=== PATIENT | female | born 1955 | race Caucasian/White ===

== ENCOUNTER 2017-08-14 05:31 | Inpatient (IN) | payer BC ==
[2017-08-13 14:30] VITALS: BMI 23.0
[2017-08-14] VITALS (30 sets, daily range): BP systolic 88–137; BP diastolic 44–72; PULSE 96–112; RESP 14–29; Ht 166.4 cm; Wt 63.0 kg
[~2017-08-14] VITALS: Ht 166.4 cm; Wt 63.0 kg
[2017-08-14] MEDS ORDERED: CEFAZOLIN 2 GM/50 ML (PMX) 50 ML IVPB SCH (06:00)
[2017-08-14] MEDS ORDERED: LACTATED RINGER'S 1,000 ML IV* SCH (06:00)
[2017-08-14] MEDS ORDERED: SURGIFOAM POWDER 1 GM KIT ONE ×2 (06:46→08:33)
[2017-08-14] MEDS ORDERED: GELATIN SIZE 100 SPONGE ONE (06:46)
[2017-08-14] MEDS ORDERED: BUPIVACAINE 0.25%/EPI (SDV) 30 ML INJ ONE (06:46)
[2017-08-14] MEDS ORDERED: SODIUM CL BACTERIOSTATIC 30 ML INJ ONE (06:47)
[2017-08-14] MEDS ORDERED: CEFAZOLIN 1 GM INJ ONE ×2 (06:47→07:15)
[2017-08-14] MEDS ORDERED: THROMBIN 5000 UNIT VIAL ONE ×2 (06:47→08:33)
[2017-08-14] MEDS: D5W-0.45 NACL + KCL 20 MEQ 1,000 ML IV SCH ×2 (06:53→17:45)
--- NOTE | 2017-08-14 06:53 | HPN ---
Date/Time of Note Date/Time of Note DATE: 08/14/17 TIME: 06:52 Interval H&P Admission Note Pt. seen H&P reviewed: No system changes OTTONIEL MARQUEZ MD Aug 14, 2017 06:53
[2017-08-14] MEDS ORDERED: AL HYDROX/MG HYDROX/SIMETH 30 ML CUP PO PRN (07:00)
[2017-08-14] MEDS ORDERED: CEPASTAT LOZENGE MT PRN (07:00)
[2017-08-14] MEDS ORDERED: DIPHENHYDRAMINE 25 MG CAP PO PRN (07:00)
[2017-08-14] MEDS ORDERED: OXYCODONE/ACETAMINOPHEN (10/325) TAB PO PRN (07:00)
[2017-08-14] MEDS ORDERED: HYDROmorphONE 0.5 MG/0.5 ML SYG IV PRN (07:00)
[2017-08-14] MEDS ORDERED: BISACODYL 10 MG SUPP PR PRN (07:00)
[2017-08-14] MEDS ORDERED: ACETAMINOPHEN 325 MG TAB PO PRN (07:00)
[2017-08-14] MEDS ORDERED: ONDANSETRON 4 MG INJ IV PRN ×2 (07:00→08:00)
[2017-08-14] MEDS ORDERED: NALOXONE (0.4 MG/ML) INJ IV PRN (07:00)
[2017-08-14] MEDS: CEFAZOLIN 1 GM/50 ML (PMX) 50 ML IVPB SCH ×3 (07:00→23:45)
[2017-08-14] MEDS ORDERED: HEPARIN 1000 UNITS/ML 10 ML INJ ONE ×2 (07:01→08:11)
[2017-08-14] MEDS ORDERED: GLYCOPYRROLATE 0.4 MG INJ ONE (07:15)
[2017-08-14] MEDS ORDERED: ONDANSETRON 4 MG INJ ONE (07:15)
[2017-08-14] MEDS ORDERED: ROCURONIUM 50 MG INJ ONE ×3 (07:15→10:15)
[2017-08-14] MEDS ORDERED: NEOSTIGMINE 3 MG/3 ML SYRINGE ONE (07:15)
[2017-08-14] MEDS ORDERED: FENTAnyl 50 MCG/ML VIAL ONE (07:15)
[2017-08-14] MEDS ORDERED: PROPOFOL 20 ML ONE (07:15)
[2017-08-14] MEDS ORDERED: MIDAZOLAM 1 MG/ML 2 ML INJ ONE (07:15)
[2017-08-14] MEDS ORDERED: DEXAMETHASONE 4 MG/ML 1 ML INJ ONE (07:16)
[2017-08-14] MEDS ORDERED: PHENYLephrine (100 MCG/ML) 5ML SYG ONE ×3 (07:49→11:32)
[2017-08-14] MEDS ORDERED: LABETALOL HCL 20MG INJ IV PRN (08:00)
[2017-08-14] MEDS ORDERED: hydrALAzine 20 MG INJ IV PRN (08:00)
[2017-08-14] MEDS ORDERED: FENTAnyl 50 MCG/ML VIAL IV PRN (08:00)
[2017-08-14] MEDS ORDERED: TRIMETHOBENZAMIDE 100 MG/ML VIAL IM PRN (08:00)
[2017-08-14] MEDS ORDERED: ALBUTEROL 0.083% (NEB) 2.5 MG/3 ML AMP HHN PRN (08:00)
[2017-08-14] MEDS ORDERED: IPRATROPIUM (NEB) 0.5 MG/2.5 ML AMP HHN PRN (08:00)
[2017-08-14] MEDS ORDERED: DIPHENHYDRAMINE 50 MG INJ IV PRN (08:00)
[2017-08-14] MEDS ORDERED: MEPERIDINE 25 MG INJ IV PRN (08:00)
[2017-08-14] MEDS ORDERED: MIDAZOLAM 1 MG/ML 2 ML INJ IV PRN (08:00)
[2017-08-14] MEDS ORDERED: OXYCODONE/ACETAMINOPHEN (5/325) TAB PO PRN ×2 (08:00)
[2017-08-14] MEDS ORDERED: HYDROmorphONE (0.2 MG/ML) 10ML SYG IV PRN ×2 (08:00)
[2017-08-14] MEDS ORDERED: EPHEDrine SULFATE 50 MG/5 ML SYG IV PRN (08:00)
[2017-08-14] MEDS: DOCUSATE SODIUM 100 MG CAP PO SCH ×2 (09:00→20:10)
[2017-08-14] MEDS ORDERED: THROMBIN(HUM PLAS)/FIBRINOG/CA 5 ML VIAL TOP ONE (09:47)
[2017-08-14] MEDS ORDERED: SUGAMMADEX SODIUM 200 MG/2 ML VIAL IV ONE ×2 (10:15→11:35)
--- NOTE | 2017-08-14 10:17 | SIPON ---
Date/Time of Note Date/Time of Note DATE: 08/14/17 TIME: 10:15 Operative Report Preoperative Diagnosis Lumbar disc disease Postoperative Diagnosis Lumbar disc disease Operation/Procedure Performed Lumbar fusion Surgeon see signature line child welfare assistant Malekmehkaylee Second assist: ROBIN REICH PA-C Anesthesia: general Estimated blood loss: 50 - 100 ml's Transfusion Required none Specimen disk Grafts/Implants cage and screws Complications none OTTONIEL MARQUEZ MD Aug 14, 2017 10:17
[2017-08-14] MEDS ORDERED: METOCLOPRAMIDE 10 MG INJ ONE (11:39)
[2017-08-14] MEDS ORDERED: HYDROmorphONE (0.2 MG/ML) 10ML SYG IV ONE (12:11)
[2017-08-14] MEDS: HYDROmorphONE 0.2 MG/ML PCA IV SCH ×2 (12:17→18:46)
[2017-08-14] MEDS: HYDROmorphONE (0.2 MG/ML) 10ML SYG IV PRN ×3 (12:19→12:23)
--- NOTE | 2017-08-14 12:23 | OPR ---
DATE OF OPERATION: 08/14/2017 PREOPERATIVE DIAGNOSES: L4 to 5, L5 to S1 disk disease with stenosis. POSTOPERATIVE DIAGNOSES: L4 to 5, L5 to S1 disk disease with stenosis. OPERATION PERFORMED: 1. Anterior lumbar interbody fusion at L4 to 5 and L5 to S1. 2. Placement of intervertebral biomechanical device at L4 to L5 and L5 to S1. 3. Anterior hardware at L4 to 5 and L5 to S1. 4. Left iliac crest bone marrow aspiration. 5. Application of NuShield device. 6. Treatment of dural tear. 7. Use of allograft. 8. Use of C-arm fluoroscopy with interpretation without radiologist present. 9. Intraoperative neuromonitoring (2.5 hours). IMPLANTS: Renovis Tsera standalone 13 x 38 x 30 mm at L4 to 5 and L5 to S1 with 7 degrees at L4 to 5 and 12 degrees at L5 to S1, fibergraft. PRIMARY SURGEON: Merlin Solis MD. CO-SURGEON: Jasmine Bryant MD. SECOND BLASTER HELPER: Cathy Lane PA-C. NEED FOR CO-SURGEON: A co-surgeon was required in order to retract the neurovascular elements. FINDINGS: Neuromonitoring at the start of the case revealed left L3 amplitude down 20%, right L3 down 30%, left L4 amplitude down 40%, right L4 down 50%, left L5 down 70%, right L5 down 40%, left S1 down 70%, right S1 down 30%. At the end of the case, nerve signals remained unchanged. The patient had significant disk collapse and stenosis at both levels. A dural tear was encountered at the L4 to 5 level. ESTIMATED BLOOD LOSS: Per Dr. Bryant. DRAINS: None. SPECIMENS: L4 to 5 and L5 to S1 disk. COMPLICATIONS OF PROCEDURES: Dural tear at L4 to 5. ANESTHESIOLOGIST: Romario Hope MD. TYPE OF ANESTHESIA: General. INDICATIONS FOR PROCEDURE: This 62-year-old female with back and lower extremity pain in the setting of disk disease and stenosis with spinal deformity. She has failed nonoperative measures, therefore, I recommended proceeding with the above-mentioned surgery. Preoperatively, we discussed the risks, benefits and alternatives. She understood and wished to proceed. DESCRIPTION OF PROCEDURE IN DETAIL: The patient was identified in the preoperative holding area, given Ancef antibiotics, taken to the operating room , where she was successfully placed under general anesthesia. Neuromonitoring leads were placed, sequential compressive devices were applied. Dunn catheter was introduced. Arterial line was placed. Neuromonitoring was utilized during the procedure for 2.5 hours to include SSEP, MEP and EMG. Start time was 8:00 a.m. Closure time was 10:30 a.m. This was performed by [employer]. Neuromonitoring included SSEP, EMG and MEP. The patient was on the operating table in supine position. Abdomen was prepped and draped in usual sterile fashion. Incision was made just over the left iliac crest, staying lateral to the ASIS and an iliac crest bone marrow aspiration was performed. This incision was then closed with a Monocryl stitch. Dr. Bryant then performed an anterior approach to the spine. He will dictate the approach separately. Once he identified the anterior spine, we placed a bent spinal needle into the L5 to S1 level and took AP and lateral image to confirm the correct level. Once this was confirmed, annulotomy was performed at the L5 to S1 level. Radical diskectomy was performed. I sequentially opened up the disk space. I prepared the endplates. Once this was done, I placed various trials and chose the appropriate graft height. I then took the titanium cage within which I placed allograft and I impacted intervertebral biomechanical device into the L5 to S1 level to complete the anterior lumbar interbody fusion at this level. I then placed the anterior plate at L5 to S1. I then turned my attention to the L4 to 5 level. Similarly here, radical diskectomy was performed. A small dural tear was encountered. This was too small to repair directly and therefore I took a piece of Duragen Plus and placed this over the defect and injected Evicel over the area. I then impacted the titanium cage. This intervertebral biomechanical device was filled with the allograft. This is done in order to complete the lumbar interbody fusion at L4 to 5. Once this was done, I placed the anterior plate and the appropriate screws. The 25 mm screws used at L4 to 5 and L5 to S1. Once all the hardware was in place, I took AP and lateral images. I was happy with placement of the hardware and alignment of the spine. NuShield device was applied anteriorly and Dr. Bryant proceeded to close the wound in layers, which he will dictate separately. At the end of the case, 4 quadrant abdominal films were obtained confirming that there were no foreign bodies in the abdomen. Upon completion of the surgery, the patient will be placed in the prone position for stage II, which will be dictated separately. There was a peritoneal breach during surgery. The patient will be NPO until flatus. Dictated By: MERLIN SOLIS MD BB/NTS Conf#: [id number] DID#: [id number] CC: JASMINE BRYANT MD;*EndCC* MTDD
--- NOTE | 2017-08-14 12:26 | OPR ---
DATE OF OPERATION: 08/14/2017 PREOPERATIVE DIAGNOSIS: Degenerative scoliosis with stenosis, now status post anterior lumbar inter body fusion at L4-5 and L5-S1. POSTOPERATIVE DIAGNOSIS: Degenerative scoliosis with stenosis, now status post anterior lumbar inte rbody fusion at L4-5 and L5-S1. PROCEDURE: 1. Bilateral pedicle screw placement at L4 and S1 (segmental fusion). 2. Segmental instrumentation. 3. Posterolateral fusion at L4-5 and L5-S1. 4. Use of C-arm fluoroscopy with interpretation without radiologist present. 5. Intraoperative neuromonitoring (1 hour). PRIMARY SURGEON: Merlin Solis MD. LABOR COMMISSIONER: Cathy Lane PA-C. NEED FOR COFFEE GROWER: During this spinal surgical procedure, my periodontal assistant was used to retrac t and protect the spinal nerves and dural sac. My periodontal assistant also employed the suction catheters to evacuate blood from the surgical field to improve visualization of the neural structures. The jillian tant was medically necessary to facilitate the completion of the surgery in a safe and expeditious m gabino. State of [place] regulations, as well as hospital bylaws, preclude the use of non-license d health care personnel, such as operating room technicians, to perform these functions. IMPLANTS: 1. Opal Chaves 5.5 x 40 mm pedicle screws at L4 and 6.5 x 40 mm pedicle screws at S1. 2. Fibergraft matrix. FINDINGS: Neuromonitoring at start of this stage revealed left L3 down 20%, left L4 down 40%, left L5 and S1 each down 70%, right L3 down 30%, right L4 down 50%, right L5 down 40%, right S1 down 30%. At the end of the case, bilateral L3 down 20%, bilateral L4 down 30%, left L5 down 60%, right L5 d own 30%, left S1 down 50%, right S1 down 10%. ESTIMATED BLOOD LOSS: 40 mL. DRAINS: None. SPECIMENS: None. COMPLICATIONS OF PROCEDURES: None. ANESTHESIOLOGIST: Romario Hope MD. TYPE OF ANESTHESIA: General. INDICATIONS FOR PROCEDURE: This is a 62-year-old female who completed stage I surgery, which was an terior approach. This is dictated separately. For the second stage, she was placed in downward tur anthony prone position over a German frame. All bony prominences were padded. The back was prepped, dr aped in usual sterile fashion. Neuromonitoring was utilized during this stage for 1 hour to include SSEP, MEP and EMG. This was performed by [employer]. Start time was 7:45 a.m., closure time was 11:45 a.m. The back was prepped and draped in usual sterile fashion. Using the sterile fluoro scope, I identified the incision site. I anesthetized the skin with Marcaine and epinephrine. Inci umair was made over the pedicle screws. Jamshidi needles were passed into the L4 and S1 pedicles alexia aterally. I elected to skip the L5 pedicles due to the anatomy on the MRI, which made it somewhat m ore difficult. The patient also had very narrow pedicles at L4 and I attempted to start more latera lly with the pedicle screws. I placed Jamshidi needles followed by a guidewire followed by the pedi rosette screws at L4 bilaterally, and at S1 bilaterally. Once the screws were in place, I stimulated ea ch of the screws and there was no evidence of cortical breach. I then placed the appropriate size r od with set screws which I tight per manufacture's specification. I removed the community service director tabs. I i rrigated the wound. I appropriated the posterolateral gutters and performed a posterolateral fusion at L4-5 and L5-S1 with placement of allograft. I then closed the deep fascia with #1 Vicryl stitch . I then closed subcutaneous tissue with 2-0 Vicryl stitch. I took final AP and lateral images and I was happy with the placement of the hardware and alignment of the spine. Dermabond was then appl ied. The patient was then awakened from anesthesia and taken to recovery in stable condition. Lap, sponge and instrument counts were correct x2. There were no apparent complications during this sta ge of the surgery, The patient will be admitted to the orthopedic [facility] for routine postoperative care to include pain c ontrol, neurovascular checks, antibiotics, and physical therapy. She will initially be n.p.o. due t o the peritoneal breach until she passes gas. She will be on bed rest to make sure she does not hav e any headaches and will slowly begin physical therapy. I will obtain a CT scan to evaluate the ochoa dware and in 48 hours. I will obtain an MRI to make sure that there is no persistent CSF leak. Dictated By: MERLIN SOLIS MD BB/RONNELL Conf#: [id number] DID#: [id number]
[2017-08-14] MEDS: FENTAnyl 50 MCG/ML VIAL IV PRN ×2 (12:33→12:42)
[2017-08-14] MEDS: DIPHENHYDRAMINE 50 MG INJ IV PRN ×2 (12:37→20:12)
--- NOTE | 2017-08-14 12:58 | RADRPT ---
PROCEDURE: XR fluoro guidance CLINICAL INDICATION: L4-5, L5-S1 fusion TECHNIQUE: Fluoroscopy performed. 12 images submitted. Total fluoro time: 109 seconds COMPARISON: None. FINDINGS: Interbody fusion hardware at L4-5, L5-S1, and posterior L4-S1 fusion hardware demonstrated. See oper ative/procedure report for details. IMPRESSION: Fluoroscopic guidance for lumbar spine surgery. RPTAT: VV .Lázaro Cardenas MD, MD Date Time Electronically viewed and signed by .Lázaro Cardenas MD, on 08/14/2017 12:58 .O/
--- NOTE | 2017-08-14 12:59 | RADRPT ---
PROCEDURE: XR fluoro guidance CLINICAL INDICATION: L4-5, L5-S1 fusion TECHNIQUE: Fluoroscopy performed. 2 images submitted. Total fluoro time: 34 seconds COMPARISON: None. FINDINGS: Interbody fusion hardware at L4-5, L5-S1 demonstrated. See operative/procedure report for details. IMPRESSION: Fluoroscopic guidance for lumbar spine surgery. RPTAT: VV .Lázaro Cardenas MD, Date Time Electronically viewed and signed by .Lázaro Cardenas MD, on 08/14/2017 12:59 .O/
--- NOTE | 2017-08-14 14:12 | CONS ---
DATE OF ADMISSION: 08/14/2017 DATE OF CONSULTATION: Thank you, Dr. Solis, for asking me to participate in medical management of this patient. REASON FOR CONSULTATION: To manage the patient's hyperlipidemia, menopausal syndrome, chronic neck pain. HISTORY OF PRESENT ILLNESS: This 62-year-old female is now in the recovery room after undergoing kelley rgery for bilateral low back pain with pain that radiates into both lower extremities. She has been diagnosed as having lumbar radiculopathy and underwent an anterior, posterior lumbar spine surgery today by Dr. Solis. The patient is awake and alert. She is having some pain, but is being medi cated. There is a note on the chart from the patient's primary care physician, Dr. Des Gonzalez, which details the patient's past medical history. PAST MEDICAL HISTORY: The patient's past medical history is remarkable for: 1. 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 2. Cervical disk disease. 3. Benign thyroid nodule. 4. Benign renal cyst. PAST SURGICAL HISTORY: Includes: 1. Jaw infection following wisdom tooth extraction in the year 1999. 2. Breast augmentation. SOCIAL HISTORY: The patient is . Nonsmoker, nondrinker. She lives with her . CURRENT MEDICATIONS: Include: 1. Progesterone 2. Estradiol. 3. Prometrium 4. Cyclobenzaprine. 5. Guffey. ALLERGIES: SHE IS ALLERGIC TO DEMEROL. PHYSICAL EXAMINATION: GENERAL: At this time reveals a well-developed female. VITAL SIGNS: Pulse of 105, blood pressure 112/59, O2 saturation is 100% on 2 liter nasal cannula. HEENT: Head normocephalic. Eyes: Extraocular muscles intact. NOSE AND MOUTH: Normal. NECK: Supple. No neck vein distention. LUNGS: Clear to auscultation. HEART: Regular rhythm. No murmurs, gallops or rubs. ABDOMEN: Tender. She has a fresh wound in the midline of the abdomen. EXTREMITIES: Her lower extremities do not show any edema. Her feet are warm. IMPRESSION: This patient is stable after surgery today. She is in pain and is tachycardic: Frances page, she is being treated with pain medicine. The patient does have a history of menopausal syndrome, thyroid nodule and renal cyst. I will manage the patient's medical problems postoperatively. PLAN: 1. Transfer to the orthopedics floor when the patient is stable in the recovery room. 2. Check labs in the morning. 3. Postop anterior, posterior lumbar spine surgery protocol. 4. I will follow the patient along with you. Dictated By: LIN LU MD, ND/RONNELL Conf#: [id number] DID#: [id number]
[2017-08-14] MEDS: CYCLOBENZAPRINE 10 MG TAB PO PRN ×2 (16:32→23:47)
--- NOTE | 2017-08-14 17:16 | RADRPT ---
PROCEDURE: CT Lumbar Spine without contrast. CLINICAL INDICATION: Postoperative evaluation status post lumbar spine surgery. TECHNIQUE: The study was performed on a multislice multidetector CT scanner. Spiral axial 1 mm im ages were obtained through the lumbar spine without intravenous contrast. 1 or more of the following dose reduction techniques were utilized: Automated exposure control, adjustment of the mA and/or k V according to patient's size, iterative reconstruction technique. Coronal and sagittal reformation s were obtained. The images were reviewed on a PACS workstation. DICOM images are available. RADIATION DOSE: CTDIvol: 48.0 mGyDLP: 1587.1 mGy-cm COMPARISON: No prior studies are available for comparison. FINDINGS: There are postoperative changes from anterior and posterior lumbar discectomy and fusion at L4-5 and L5-S1. There are anterior interbody fusion devices in place at L4-5 and L5-S1 with intact surgical hardware. There are paired pedicle screws in the L4 and S1 vertebral bodies with associated paraspin al fusion rods. There are mild postoperative changes in the vertebral and posterior soft tissues. Th e remaining vertebral body heights are maintained. The remaining intervertebral discs are normal in appearance. There is no evidence of fracture or dislocation. L1-L2: The posterior margin of the disc is normal in appearance. No significant disc bulge or prot rusion is evident. The central canal and neural foramina are adequately patent. L2-L3: There is a 2 mm annular disc bulge , slightly asymmetric to the right. The thecal sac and l ateral recesses are patent. There is mild bilateral facet spondylosis. The neural foramina are pat ent. L3-L4: There is a 2 mm disc bulge. There is mild bilateral facet hypertrophy. The thecal sac and la teral recesses are patent. The neural foramina are patent. L4-L5: No residual disc material is seen. The thecal sac and lateral recesses are patent. The chanelle ral foramina are patent.. L5-S1: No residual disc material is seen. The thecal sac and lateral recesses are patent. There i s mild narrowing of both neural foramina. IMPRESSION: 1. Postoperative changes from anterior posterior lumbar discectomy and fusion at L4-5 and L5-S1 wit h intact surgical hardware. 2. Postoperative changes in the ventral and dorsal paraspinal soft tissues. 3. The remaining lumbar spine is normal in appearance. RPTAT: HGAS .Miguel Iglesias MD, MD Date Time Electronically viewed and signed by .Miguel Iglesias MD, MD on 08/14/2017 17:16 .S/
--- NOTE | 2017-08-14 19:43 | OPR ---
DATE OF OPERATION: PREOPERATIVE DIAGNOSIS: Degenerative disk disease, lumbosacral spine. POSTOPERATIVE DIAGNOSIS: Degenerative disk disease, lumbosacral spine. PROCEDURES: 1. Anterior retroperitoneal exposure and interbody fusion L4-L5. A. Surgeon: Dr. Malekmehr. Dominguez. Co-surgeon: Dr. Marquez. 2. Anterior retroperitoneal exposure and interbody fusion L5-S1. A. Surgeon: Dr. Malekmehr. Dominguez. Co-surgeon: Dr. Marquez. 3. Repair of left common iliac vein. A. Surgeon: Dr. Malekmehr. Dominguez. cashier assistant: Dr. Marquez. 4. Left inguinal lymph node biopsy. A. Surgeon: Dr. Malekmehr. Dominugez. cashier assistant: Dr. Marquez. 5. Mobilization of the left common iliac artery and vein, inferior vena cava and aorta to the right . A. Surgeon: Dr. Malekmehr. Dominguez. Motion Picture Operator: Dr. Marquez. 6. Ligation of iliolumbar vein. A. Surgeon: Dr. Malekmehr. Dominguez. Motion Picture Operator: Dr. Marquez. 7. Ligation of middle sacral vessels. A. Surgeon: Dr. Malekmehr. Dominguez. Motion Picture Operator: Dr. Marquez. ESTIMATED BLOOD LOSS: 125 mL. ANESTHESIA: General. INFORMED CONSENT: Risks, benefits, complications, alternative therapies, high-risk nature of the op eration fully explained to the patient and the family, consent obtained. Risks and benefits that were explained to the patient and the family included, but not limited to, b leeding, infection, damage to bowel, damage to ureter, wound infection, wound dehiscence, loss of li mb, loss of life, blood transfusions, DVT, PE, need for further surgeries, neurological deficits and others. DESCRIPTION OF PROCEDURE: The patient was placed in supine position. Timeout was called. Antibiot ics were given. NG tube was placed and I started. I made a 10 cm incision midline from the umbilicus down to the xiphoid process. Incision was taken down to the subcutaneous tissue which was then opened using electrocautery. Left anterior rectus sheath was opened in the direction of the wound, and the posterior rectus sheat h was incised superiorly about 4 cm. Bookwalter retractor was placed, retracting the bowel contents to the right, left rectus muscle to t he left. I identified the left psoas muscle, ureter, left common iliac artery and vein, left engineering recruiter al iliac artery and vein. Left external iliac artery and vein and common iliac artery and vein were dissected using a peanut d issector. Left iliolumbar vein was ligated using 2-0 silk sutures and titanium clips. Middle sacra l vessels were ligated using titanium clips. The aorta and vena cava were mobilized to the right. During the mobilization, there was a small tea r in the common iliac vein which was repaired using a ueilzo-cl-cwtso 6-0 Prolene in interrupted fas hion. Minimal blood loss was noted. Exposure for L4-L5 was obtained by retracting the left common iliac artery and vein and vena cava an d aorta to the right. Exposure for L4, L5 and S1 was obtained by retracting the right common iliac artery and vein to the right and left common iliac artery and vein to the left. After the cages had been placed, all of the x-rays were satisfactory, read by Dr. Marquez. Needle count and sponge count was correct. No evidence of any bleeding was noted. The wound was irrigated using copious amount of antibiotic solution. The posterior rectus sheath wa s closed using 0 Vicryl suture in running fashion. Anterior rectus sheath was closed using a #1 Pavel ryl suture in running fashion with interrupted sutures in the middle. The wound was irrigated and closed in 2 layers of 2-0 Vicryl suture for the deep and Steri-Strips fo r the skin. The patient tolerated procedure well. Dictated By: JASMINE HUGGINS MD FM/RONNELL Conf#: [id number] DID#: [id number] CC: OTTONIEL MARQUEZ MD;*EndCC*
[2017-08-15] MEDS: HYDROmorphONE 0.2 MG/ML PCA IV SCH ×4 (00:39→19:06)
[2017-08-15 01:42] VITALS: BP 113/68; RESP 18
[2017-08-15] MEDS: D5W-0.45 NACL + KCL 20 MEQ 1,000 ML IV SCH ×3 (03:22→15:17)
[2017-08-15 05:06] LABS: BASOPHILS % 0.2 % (0.0-2.0); EOSINOPHILS % 0.2 % (0.0-7.0); HEMATOCRIT 35.4 % (37.0-47.0); HEMOGLOBIN 11.8 g/dl (12.0-16.0); LYMPHOCYTES % 10.4 % (15.0-51.0); MEAN CORPUSCULAR HEMOGLOBIN 29.6 pg (29.0-33.0); MEAN CORPUSCULAR HGB CONC 33.3 g/dl (32.0-37.0); MEAN CORPUSCULAR VOLUME 88.9 fl (82.0-101.0); MEAN PLATELET VOLUME 10.8 fl (7.4-10.4); MONOCYTE # 0.8 10^3/ul (0.3-0.9); MONOCYTES % 7.9 % (0.0-11.0); NEUTROPHIL # 7.9 10^3/ul (1.6-7.5); PLATELET COUNT 222 10^3/UL (140-415); RED BLOOD COUNT 3.98 10^6/ul (4.20-5.40); RED CELL DISTRIBUTION WIDTH 13.9 % (11.5-14.5); WHITE BLOOD COUNT 9.7 10^3/ul (4.8-10.8)
[2017-08-15] MEDS: DIPHENHYDRAMINE 50 MG INJ IV PRN (05:20)
[2017-08-15] MEDS: PANTOPRAZOLE (EC) 40 MG TAB PO SCH (05:20)
[2017-08-15 05:31] LABS: CALCIUM 8.5 mg/dl (8.4-10.2); CREATININE 0.53 mg/dl (0.44-1.00); MAGNESIUM 1.7 mg/dl (1.7-2.5); POTASSIUM 3.6 mmol/L (3.5-5.1)
[2017-08-15 08:27] VITALS: BP 111/53; RESP 18
[2017-08-15] MEDS: CYCLOBENZAPRINE 10 MG TAB PO PRN (08:36)
[2017-08-15] MEDS: DOCUSATE SODIUM 100 MG CAP PO SCH ×2 (08:36→22:09)
--- NOTE | 2017-08-15 09:17 | PN ---
Date/Time of Note Date/Time of Note DATE: 08/15/17 TIME: 09:16 Assessment/Plan Lines/Catheters IV Catheter Type (from Nrsg): Peripheral IV Dunn in Place (from Nrsg): Yes Assessment/Plan Assessment/Plan s/p ALIF L4-S1 CT reveals hardware appropriately placed positive flatus - start liquid diet start valium - pain control MRI tomorrow to eval dural tear - no CHOPRA Subjective 24 Hr Interval Summary c/o back pain, no CHOPRA, positive flatus Exam/Review of Systems Vital Signs Vitals Vital Signs Date Time Temp Pulse Resp B/P Pulse Ox O2 Delivery O2 Flow Rate FiO2 08/15/17 08:27 98.3 79 18 111/53 100 08/14/17 20:01 Nasal Cannula 2.0 Intake and Output 08/14/17 08/14/17 08/15/17 15:00 23:00 07:00 Intake Total 2700 ml 50 ml 1200 ml Output Total 425 ml 350 ml 1950 ml Balance 2275 ml -300 ml -750 ml Exam Free Text/Dictation nvi, palp pulses Results Result Diagram: 08/15/17 0427 08/15/17 0427 OTTONIEL MARQUEZ MD Aug 15, 2017 09:17
--- NOTE | 2017-08-15 09:46 | CONS ---
Date/Time of Note Date/Time of Note DATE: 08/15/17 TIME: 09:42 Assessment/Plan Assessment/Plan Additional Assessment/Plan 1. Doing well post op lumbar back surgery 2. Abd bloating and discomfort, not unexpected 3. Mild situational depression, also not unexpected 4. Labs rev Consultation Date/Type/Reason Admit Date/Time Aug 14, 2017 at 05:31 Initial Consult Date Detailed Summary Respiratory: No cough, No shortness of breath Cardiovascular: No chest pain Gastrointestinal: other (mild bloating ), No nausea, No vomiting Genitourinary: other (benson in place) Musculoskeletal: back pain (mod severe) Exam/Review of Systems Vital Signs Vitals Vital Signs Date Time Temp Pulse Resp B/P Pulse Ox O2 Delivery O2 Flow Rate FiO2 08/15/17 08:27 98.3 79 18 111/53 100 08/14/17 20:01 Nasal Cannula 2.0 Intake and Output 08/14/17 08/14/17 08/15/17 14:59 22:59 06:59 Intake Total 2700 ml 50 ml 1200 ml Output Total 425 ml 350 ml 1950 ml Balance 2275 ml -300 ml -750 ml Exam Neck: No jvd Respiratory: clear to auscultation Cardiovascular: regular rate and rhythm Gastrointestinal: distended (mild and sl tender periumbilical) Extremities: No edema (and no calf tend) Results Result Diagram: 08/15/1742608/15/17426 Results 24 hrs Laboratory Tests Test 08/15/17 04:27 White Blood Count 9.7 Red Blood Count 3.98 L Hemoglobin 11.8 L Hematocrit 35.4 L Mean Corpuscular Volume 88.9 Mean Corpuscular Hemoglobin 29.6 Mean Corpuscular Hemoglobin Concent 33.3 Red Cell Distribution Width 13.9 Platelet Count 222 Mean Platelet Volume 10.8 H Neutrophils % 81.0 H Lymphocytes % 10.4 L Monocytes % 7.9 Eosinophils % 0.2 Basophils % 0.2 Nucleated Red Blood Cells % 0.0 Neutrophils # 7.9 H Lymphocytes # 1.0 Monocytes # 0.8 Eosinophils # 0.0 Basophils # 0.0 Nucleated Red Blood Cells # 0.0 Sodium Level 139 Potassium Level 3.6 Chloride Level 100 Carbon Dioxide Level 31 Anion Gap 12 Blood Urea Nitrogen 4 L Creatinine 0.53 Glucose Level 144 Calcium Level 8.5 Magnesium Level 1.7 Medications Medications Current Medications Lactated Ringer's 1,000 ml @ 20 mls/hr Q24H IV* ; Start 08/14/17 at 06:00; Stop 08/16/17 at 07:59 Potassium Chloride/Dextrose/ Sod Cl (D5-1/2ns + KCl 20 Meq) 1,000 ml @ 100 mls/ hr Q10H IV Last administered on 08/15/17 03:22; Admin Dose 100 MLS/HR; Start 08/14/17 at 06:53 Oxycodone/ Acetaminophen (Endocet (10/ 325)) 1 tab Q4H PRN PO PAIN LEVEL 1-5; Start 08/14/17 at 07:00 Oxycodone/ Acetaminophen (Endocet (10/ 325)) 2 tab Q4H PRN PO PAIN LEVEL 6-10; Start 08/14/17 at 07:00 Hydromorphone HCl (Dilaudid) 0.2 mg Q1H PRN IV BREAKTHROUGH PAIN; Start at 07:00 Ondansetron HCl (Zofran Inj) 4 mg Q6H PRN IV NAUSEA AND/OR VOMITING; Start 08/19 at 07:00 Bisacodyl (Dulcolax Supp) 10 mg DAILY PRN [place] CONSTIPATION; Start 08/14/17 at 07:00 Docusate Sodium (Colace) 100 mg BID PO Last administered on 08/15/17 08:36; Admin Dose 100 MG; Start 08/14/17 at 09:00 Pantoprazole (Protonix Tab) 40 mg DAILY@06 PO Last administered on 08/15/17 05:20; Admin Dose 40 MG; Start 08/15/17 at 06:00 Al Hydrox/Mg Hydrox/Simethicone (Mag-Al Plus) 15 ml Q6H PRN PO CONSTIPATION/ DYSPEPSIA; Start 08/14/17 at 07:00 Acetaminophen (Tylenol Tab) 650 mg Q4H PRN PO CHOPRA OR TEMP GREATER THAN 101.3F; Start 08/14/17 at 07:00 Phenol (Cepastat Lozenge) 1 lozenge PRN PRN [place] SORE THROAT Last administered on 08/14/17 20:11; Admin Dose 1 LOZENGE; Start 08/14/17 at 07:00 Diphenhydramine HCl (Benadryl) 25 mg Q6H PRN PO ITCHING; Start 08/14/17 at 07: 00 Diphenhydramine HCl (Benadryl) 25 mg Q6H PRN IV ITCHING Last administered on 05:20; Admin Dose 25 MG; Start 08/14/17 at 07:00 Naloxone HCl (Narcan) 0.2 mg Q2M PRN IV RR 8 BREATHS/MIN OR LESS; Start at 07:00 Hydromorphone HCl (Dilaudid BEAD MAKER) BEAD MAKER to be started in PACU Q4PCA IV Last administered on 08/15/17 06:31; Admin Dose 6 MG; Start 08/14/17 at 07:00; Status Future Hold Miscellaneous Information 1. Hold BEAD MAKER at 1,000... BEAD MAKER IV ; Start 08/14/17 at 07 :00 Diazepam (Valium) 5 mg Q6H PRN PO MUSCLE SPASMS; Start 08/15/17 at 09:30 Hydromorphone HCl (Dilaudid BEAD MAKER) BEAD MAKER to be started in PACU Q4PCA IV ; Start at 09:30 AVIS RODARTE MD Aug 15, 2017 09:46
--- NOTE | 2017-08-15 14:31 | PN ---
Date/Time of Note Date/Time of Note DATE: 08/15/17 TIME: 14:30 Assessment/Plan Lines/Catheters IV Catheter Type (from Nrsg): Peripheral IV Dunn in Place (from Nrsg): Yes Assessment/Plan Chief Complaint/Hosp Course SP ALIF will adv diet prn pulm toilet ambulation Problems: Subjective 24 Hr Interval Summary Constitutional: improved Pain Control: mild Exam/Review of Systems Vital Signs Vitals Vital Signs Date Time Temp Pulse Resp B/P Pulse Ox O2 Delivery O2 Flow Rate FiO2 08/15/17 13:00 16 08/15/17 08:30 Nasal Cannula 2.0 08/15/17 08:27 98.3 79 111/53 100 Intake and Output 08/14/17 08/14/17 08/15/17 15:00 23:00 07:00 Intake Total 2700 ml 50 ml 1200 ml Output Total 425 ml 350 ml 1950 ml Balance 2275 ml -300 ml -750 ml Exam Neck: non-tender, supple Respiratory: clear to auscultation, normal air movement Cardiovascular: nl pulses, regular rate and rhythm Results Result Diagram: 08/15/17 0427 08/15/17426 JASMINE HUGGINS MD Aug 15, 2017 14:31
[2017-08-15 15:05] VITALS: BP 117/59; RESP 18
[2017-08-15] MEDS: DIAZEPAM 5 MG TAB PO PRN ×2 (16:59→22:46)
[2017-08-15 19:20] VITALS: BP 134/63; RESP 18
[2017-08-16 01:50] VITALS: BP 122/60; RESP 18
[2017-08-16] MEDS: D5W-0.45 NACL + KCL 20 MEQ 1,000 ML IV SCH (02:53)
[2017-08-16 05:15] LABS: BASOPHIL # 0.1 10^3/ul (0.0-0.1); BASOPHILS % 0.4 % (0.0-2.0); EOSINOPHILS # 0.2 10^3/ul (0.0-0.5); EOSINOPHILS % 1.3 % (0.0-7.0); HEMATOCRIT 33.7 % (37.0-47.0); HEMOGLOBIN 11.3 g/dl (12.0-16.0); LYMPHOCYTES # 1.1 10^3/ul (0.8-2.9); LYMPHOCYTES % 9.6 % (15.0-51.0); MEAN CORPUSCULAR HGB CONC 33.5 g/dl (32.0-37.0); MEAN CORPUSCULAR VOLUME 89.4 fl (82.0-101.0); MEAN PLATELET VOLUME 11.8 fl (7.4-10.4); MONOCYTE # 0.9 10^3/ul (0.3-0.9); MONOCYTES % 7.7 % (0.0-11.0); NEUTROPHIL # 9.1 10^3/ul (1.6-7.5); NEUTROPHILS % 80.6 % (39.0-77.0); PLATELET COUNT 147 10^3/UL (140-415); RED BLOOD COUNT 3.77 10^6/ul (4.20-5.40); WHITE BLOOD COUNT 11.3 10^3/ul (4.8-10.8)
[2017-08-16 05:40] LABS: CALCIUM 8.4 mg/dl (8.4-10.2); CREATININE 0.52 mg/dl (0.44-1.00); MAGNESIUM 1.6 mg/dl (1.7-2.5)
[2017-08-16] MEDS: PANTOPRAZOLE (EC) 40 MG TAB PO SCH (06:40)
[2017-08-16] MEDS: HYDROmorphONE 0.2 MG/ML PCA IV SCH (07:53)
[2017-08-16 07:59] VITALS: BP 127/59; RESP 20
--- NOTE | 2017-08-16 07:59 | PN ---
Date/Time of Note Date/Time of Note DATE: 08/16/17 TIME: 07:58 Assessment/Plan Lines/Catheters IV Catheter Type (from Nrsg): Peripheral IV Benson in Place (from Nrsg): Yes Assessment/Plan Assessment/Plan frontal CHOPRA this AM. Tylenol given and improved. Will bolus NS. 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
[2017-08-16] MEDS ORDERED: SOD CHLORIDE 0.9% 1,000 ML IV ONE (08:00)
[2017-08-16] MEDS: DOCUSATE SODIUM 100 MG CAP PO SCH ×2 (08:18→22:07)
--- NOTE | 2017-08-16 09:11 | CONS ---
Date/Time of Note Date/Time of Note DATE: 08/16/17 TIME: 09:09 Assessment/Plan Assessment/Plan Additional Assessment/Plan 1. Post op lumbar back surgery 2. Hyponatremia, cause being addressed, will red po fluids, IV changed 3. Hypomag, will replete 4. Sl inc wbc, repeat u.a and cult to be obtained. 5. Ileus, unchanged Consultation Date/Type/Reason Admit Date/Time Aug 14, 2017 at 05:31 Detailed Summary Respiratory: cough (not productive), No shortness of breath Cardiovascular: No chest pain Gastrointestinal: other (feels bloated), No nausea, No vomiting Genitourinary: other (benson in place) Musculoskeletal: back pain (a bit less then yesterday) Exam/Review of Systems Vital Signs Vitals Vital Signs Date Time Temp Pulse Resp B/P Pulse Ox O2 Delivery O2 Flow Rate FiO2 08/16/17 07:59 98.0 107 20 127/59 98 08/15/17 20:10 Nasal Cannula 2.0 Intake and Output 08/15/17 08/15/17 08/16/17 15:00 23:00 07:00 Intake Total 720 ml 1400 ml Output Total 850 ml 1400 ml Balance -130 ml 0 ml Exam Neck: No jvd Respiratory: clear to auscultation Cardiovascular: regular rate and rhythm Gastrointestinal: distended (sl tender (not localized) few bs) Extremities: No edema (and no calf tend) Results Result Diagram: 08/16/17 0433 08/16/17 0442 Results 24 hrs Laboratory Tests Test 08/16/17 04:33 08/16/17 04:42 White Blood Count 11.3 H Red Blood Count 3.77 L Hemoglobin 11.3 L Hematocrit 33.7 L Mean Corpuscular Volume 89.4 Mean Corpuscular Hemoglobin 30.0 Mean Corpuscular Hemoglobin Concent 33.5 Red Cell Distribution Width 14.0 Platelet Count 147 # Mean Platelet Volume 11.8 H Neutrophils % 80.6 H Lymphocytes % 9.6 L Monocytes % 7.7 Eosinophils % 1.3 Basophils % 0.4 Nucleated Red Blood Cells % 0.0 Neutrophils # 9.1 H Lymphocytes # 1.1 Monocytes # 0.9 Eosinophils # 0.2 Basophils # 0.1 Nucleated Red Blood Cells # 0.0 Phosphorus Level 2.5 Sodium Level 130 L Potassium Level 4.0 Chloride Level 98 Carbon Dioxide Level 28 Anion Gap 8 Blood Urea Nitrogen 2 L Creatinine 0.52 Glucose Level 94 # Calcium Level 8.4 Magnesium Level 1.6 L Medications Medications Current Medications Potassium Chloride/Dextrose/ Sod Cl (D5-1/2ns + KCl 20 Meq) 1,000 ml @ 100 mls/ hr Q10H IV Last administered on 08/16/17 02:53; Admin Dose 100 MLS/HR; Start 08/14/17 at 06:53 Oxycodone/ Acetaminophen (Endocet (10/ 325)) 1 tab Q4H PRN PO PAIN LEVEL 1-5; Start 08/14/17 at 07:00 Oxycodone/ Acetaminophen (Endocet (10/ 325)) 2 tab Q4H PRN PO PAIN LEVEL 6-10; Start 08/14/17 at 07:00 Hydromorphone HCl (Dilaudid) 0.2 mg Q1H PRN IV BREAKTHROUGH PAIN; Start at 07:00 Ondansetron HCl (Zofran Inj) 4 mg Q6H PRN IV NAUSEA AND/OR VOMITING; Start 08/19 at 07:00 Bisacodyl (Dulcolax Supp) 10 mg DAILY PRN [place] CONSTIPATION; Start 08/14/17 at 07:00 Docusate Sodium (Colace) 100 mg BID PO Last administered on 08/16/17 08:18; Admin Dose 100 MG; Start 08/14/17 at 09:00 Pantoprazole (Protonix Tab) 40 mg DAILY@06 PO Last administered on 08/16/17 06:40; Admin Dose 40 MG; Start 08/15/17 at 06:00 Al Hydrox/Mg Hydrox/Simethicone (Mag-Al Plus) 15 ml Q6H PRN PO CONSTIPATION/ DYSPEPSIA; Start 08/14/17 at 07:00 Acetaminophen (Tylenol Tab) 650 mg Q4H PRN PO CHOPRA OR TEMP GREATER THAN 101.3F Last administered on 08/16/17 04:49; Admin Dose 650 MG; Start 08/14/17 at 07: 00 Phenol (Cepastat Lozenge) 1 lozenge PRN PRN [place] SORE THROAT Last administered on 08/14/17 20:11; Admin Dose 1 LOZENGE; Start 08/14/17 at 07:00 Diphenhydramine HCl (Benadryl) 25 mg Q6H PRN PO ITCHING; Start 08/14/17 at 07: 00 Diphenhydramine HCl (Benadryl) 25 mg Q6H PRN IV ITCHING Last administered on 05:20; Admin Dose 25 MG; Start 08/14/17 at 07:00 Naloxone HCl (Narcan) 0.2 mg Q2M PRN IV RR 8 BREATHS/MIN OR LESS; Start at 07:00 Hydromorphone HCl (Dilaudid FAITH DOCTOR) FAITH DOCTOR to be started in PACU Q4PCA IV Last administered on 08/15/17 06:31; Admin Dose 6 MG; Start 08/14/17 at 07:00; Status Future Hold Miscellaneous Information 1. Hold FAITH DOCTOR at 1,000... FAITH DOCTOR IV ; Start 08/14/17 at 07 :00 Diazepam (Valium) 5 mg Q6H PRN PO MUSCLE SPASMS Last administered on 22:46; Admin Dose 5 MG; Start 08/15/17 at 09:30 Hydromorphone HCl (Dilaudid FAITH DOCTOR) FAITH DOCTOR to be started in PACU Q4PCA IV Last administered on 08/16/17 07:53; Admin Dose 6 MG; Start 08/15/17 at 09:30 AVIS RODARTE MD Aug 16, 2017 09:11
[2017-08-16] MEDS ORDERED: MAGNESIUM SULFATE 3 GM in DEXTROSE 5% 100 ML IVPB ONE (11:00)
[2017-08-16] MEDS: OXYCODONE/ACETAMINOPHEN (10/325) TAB PO PRN ×3 (11:27→22:07)
[2017-08-16] MEDS: SOD CHLORIDE 0.9% 1,000 ML IV SCH ×2 (14:45→22:00)
[2017-08-16 15:18] VITALS: BP 95/55; RESP 18
[2017-08-16 17:31] LABS: ADD UMIC NO; UR ASCORBIC ACID NEGATIVE (NEGATIVE); UR BILIRUBIN (Dip) NEGATIVE (NEGATIVE); UR BLOOD (Dip) NEGATIVE (NEGATIVE); UR CLARITY CLEAR (CLEAR); UR COLOR STRAW (YELLOW); UR GLUCOSE (Dip) NEGATIVE (NEGATIVE); UR KETONES (Dip) NEGATIVE (NEGATIVE); UR LEUKOCYTE ESTERASE (Dip) NEGATIVE Leu/ul (NEGATIVE); UR NITRITE (Dip) NEGATIVE (NEGATIVE); UR SPECIFIC GRAVITY (Dip) 1.009 (1.003-1.030); UR TOTAL PROTEIN (Dip) NEGATIVE (NEGATIVE); UR UROBILINOGEN (Dip) NEGATIVE (NEGATIVE)
[2017-08-16 19:35] VITALS: BP 131/58; RESP 20
[2017-08-16] MEDS: DIAZEPAM 5 MG TAB PO PRN (20:20)
--- NOTE | 2017-08-16 21:27 | PN ---
Date/Time of Note Date/Time of Note DATE: 08/16/17 TIME: 21:26 Assessment/Plan Lines/Catheters IV Catheter Type (from Nrsg): Peripheral IV Dunn in Place (from Nrsg): Yes Assessment/Plan Chief Complaint/Hosp Course SP ALIF will adv diet prn pulm toilet ambulation Problems: Subjective 24 Hr Interval Summary Constitutional: improved Pain Control: mild Exam/Review of Systems Vital Signs Vitals Vital Signs Date Time Temp Pulse Resp B/P Pulse Ox O2 Delivery O2 Flow Rate FiO2 08/16/17 19:35 98.5 75 20 131/58 90 08/16/17 08:20 Nasal Cannula 2.0 Intake and Output 08/15/17 08/15/17 08/16/17 15:00 23:00 07:00 Intake Total 720 ml 1400 ml Output Total 850 ml 1400 ml Balance -130 ml 0 ml Results Result Diagram: 08/16/17 0433 08/16/17 0442 JASMINE HUGGINS MD Aug 16, 2017 21:27
[2017-08-17 01:55] VITALS: BP 133/60; RESP 19
[2017-08-17] MEDS: OXYCODONE/ACETAMINOPHEN (10/325) TAB PO PRN ×3 (02:05→09:58)
[2017-08-17] MEDS: DIAZEPAM 5 MG TAB PO PRN (04:05)
[2017-08-17 06:03] LABS: CALCIUM 8.1 mg/dl (8.4-10.2); CREATININE 0.6 mg/dl (0.44-1.00); MAGNESIUM 2.2 mg/dl (1.7-2.5); POTASSIUM 4.3 mmol/L (3.5-5.1)
[2017-08-17] MEDS: PANTOPRAZOLE (EC) 40 MG TAB PO SCH (06:20)
[2017-08-17 07:03] VITALS: BP 132/61; RESP 19
[2017-08-17 07:45] LABS: BASOPHIL # 0.1 10^3/ul (0.0-0.1); BASOPHILS % 0.6 % (0.0-2.0); EOSINOPHILS # 0.1 10^3/ul (0.0-0.5); EOSINOPHILS % 1.5 % (0.0-7.0); HEMATOCRIT 32.4 % (37.0-47.0); HEMOGLOBIN 10.7 g/dl (12.0-16.0); LYMPHOCYTES # 1.2 10^3/ul (0.8-2.9); MEAN CORPUSCULAR HEMOGLOBIN 29.7 pg (29.0-33.0); MEAN PLATELET VOLUME 11.4 fl (7.4-10.4); MONOCYTE # 0.7 10^3/ul (0.3-0.9); MONOCYTES % 8.8 % (0.0-11.0); NEUTROPHIL # 6.1 10^3/ul (1.6-7.5); NEUTROPHILS % 73.7 % (39.0-77.0); PLATELET COUNT 221 10^3/UL (140-415); RED CELL DISTRIBUTION WIDTH 13.9 % (11.5-14.5); WHITE BLOOD COUNT 8.2 10^3/ul (4.8-10.8)
--- NOTE | 2017-08-17 07:47 | RADRPT ---
PROCEDURE: MRI lumbar spine with and without contrast CLINICAL INDICATION: Followup status post lumbar fusion 2 days ago with back pain TECHNIQUE: An MRI of the lumbar spine was performed on a high-resolution hi-definition 3.0 [employer] M [place] scanner utilizing the following sequences: pre and post contrast sagittal and axial T1 weighted, sagittal and axial T2 weighted, and sagittal T2 weighted with fat saturation. 6 cc of Gadovist were given intravenously without complication. COMPARISON: Lumbar spine CT dated 08/14/2017 and plain films dated 08/14/2017 FINDINGS: The patient is again noted to be status post anterior and posterior discectomy and fusion with inter vertebral disc spacers at the L4-5 and L5-S1 levels. Magnetic susceptibility artifact from hardware is noted. Preservation of vertebral body heights are noted. The intervertebral disc spaces are of no rmal signal and well maintained. The conus terminates normally at the L1 level. No acute fractures o r traumatic subluxations are present. Following contrast administration, no abnormal enhancement is present of the spine, leptomeninges or pachymeninges.. Postoperative changes and edema are noted in the subcutaneous tissues extending from the T12-L1 through to the L4-5 levels without evidence for e nhancing fluid collections are present. The specific axial levels are as follows: T12 - L1: The disk is normal in appearance. The central canal, subarticular recess and neural fora men are patent. L1 - L2: A mild 2 mm broad-based bulge is present. Bilateral facet arthropathy and facet effusions are present. The central canal, subarticular recess and neural foramen are patent. L2 - L3: A mild 2 mm broad-based bulge is present with a central annular tear. The central canal, b ilateral subarticular recesses and neural foramen are patent. L3 - L4: The intervertebral disc is normal with a mild 2 mm broad-based bulge. A central annular te ar is noted. Mild bilateral facet arthropathy is present. The central canal, subarticular recess and neural foramen are patent. L4 - L5: Status post anterior and posterior discectomy, intervertebral disc spacer placement infusi on are noted. Magnetic susceptibility artifact obscures optimal evaluation on axial imaging at these levels. The central canal, bilateral subarticular recesses and neural foramen are patent. Mild bila teral facet arthropathy and facet effusions are present. L5 - S1: The patient is again status post anterior posterior discectomy with intervertebral disc sp acer and fusion noted. Magnetic susceptibility artifact is present. The central canal and bilateral subarticular recesses are patent. Mild bilateral neural foraminal stenosis is again noted. IMPRESSION: 1. Status post anterior and posterior intervertebral fusion with intervertebral disc spacers at L4- 5 and L5-S1. 2. No evidence for abnormal enhancement. 3. Postoperative subcutaneous edema extending from the L1-2 through L4-5 levels. 4. Multilevel mild broad-based bulges at the L1-2 through L3-4 the levels with central annular tear s at L2-3 and L3-4. 5. Mild bilateral L5-S1 neural foraminal stenosis RPTAT: HDC .Janee Jeronimo MD, MD Date Time Electronically viewed and signed by .Janee Jeronimo MD, on 08/17/2017 07:47 .C/
--- NOTE | 2017-08-17 08:00 | DS ---
Date/Time of Note Date/Time of Note DATE: 08/17/17 TIME: 07:58 Discharge Summary Admission/Discharge Info Admit Date/Time Aug 14, 2017 at 05:31 Discharge Date/Time August 17 Discharge Diagnosis Status post lumbar fusion Patient Condition: Good Procedures Lumbar fusion with dural repair. Hospital Course Patient was [facility] after undergoing the above procedure. She had a postoperative CT scan which showed hardware in good alignment. She had a postoperative MRI which showed no evidence of CSF leak. The patient had mild headache on one day which resolved with fluids. The patient tolerated oral pain medications as well as an oral diet. By postoperative day 3 she was deemed stable for discharge with follow-up arranged with the undersigned Primary Care Provider Not On Staff Doctor Pending Labs Laboratory Tests Test 08/16/17 14:55 08/17/17 04:29 Urine Color STRAW (YELLOW) Urine Clarity CLEAR (CLEAR) Urine pH 6.0 (5.0-9.0) Urine Specific [place] 1.009 (1.003-1.030) Urine Ketones NEGATIVEmg/dL (NEGATIVE) Urine Nitrite NEGATIVEmg/dL (NEGATIVE) Urine Bilirubin NEGATIVEmg/dL (NEGATIVE) Urine Urobilinogen NEGATIVEmg/dL (NEGATIVE) Urine Leukocyte Esterase NEGATIVELeu/ul (NEGATIVE) Urine Hemoglobin NEGATIVEmg/dL (NEGATIVE) Urine Random Sodium 82mmol/L (30-90) Urine Glucose NEGATIVEmg/dL (NEGATIVE) Urine Total Protein NEGATIVEmg/dl (NEGATIVE) White Blood Count 8.210^3/ul (4.8-10.8) Red Blood Count 3.6010^6/ul (4.20-5.40) Hemoglobin 10.7g/dl (12.0-16.0) Hematocrit 32.4% (37.0-47.0) Mean Corpuscular Volume 90.0fl (82.0-101.0) Mean Corpuscular Hemoglobin 29.7pg (29.0-33.0) Mean Corpuscular Hemoglobin Concent 33.0g/dl (32.0-37.0) Red Cell Distribution Width 13.9% (11.5-14.5) Platelet Count 34439^3/UL (140-415) Mean Platelet Volume 11.4fl (7.4-10.4) Neutrophils % 73.7% (39.0-77.0) Lymphocytes % 15.0% (15.0-51.0) Monocytes % 8.8% (0.0-11.0) Eosinophils % 1.5% (0.0-7.0) Basophils % 0.6% (0.0-2.0) Nucleated Red Blood Cells % 0.0/100WBC (0.0-0.0) Neutrophils # 6.110^3/ul (1.6-7.5) Lymphocytes # 1.210^3/ul (0.8-2.9) Monocytes # 0.710^3/ul (0.3-0.9) Eosinophils # 0.110^3/ul (0.0-0.5) Basophils # 0.110^3/ul (0.0-0.1) Nucleated Red Blood Cells # 0.010^3/ul (0.0-0.0) Sodium Level 136mmol/L (135-144) Potassium Level 4.3mmol/L (3.5-5.1) Chloride Level 101mmol/L (97-110) Carbon Dioxide Level 31mmol/L (21-31) Anion Gap 8 (8-16) Blood Urea Nitrogen 4mg/dl (7-20) Creatinine 0.60mg/dl (0.44-1.00) Glucose Level 93mg/dl (70-220) Calcium Level 8.1mg/dl (8.4-10.2) Phosphorus Level 2.6mg/dl (2.5-4.9) Magnesium Level 2.2mg/dl (1.7-2.5) OTTONIEL MARQUEZ MD Aug 17, 2017 08:00
[2017-08-17] MEDS: DOCUSATE SODIUM 100 MG CAP PO SCH (08:56)
--- NOTE | 2017-08-17 09:41 | CONS ---
Date/Time of Note Date/Time of Note DATE: 08/17/17 TIME: 09:39 Assessment/Plan Assessment/Plan Additional Assessment/Plan 1. Post op lumbar laminectomy, doing well 2. Tachycardia, asx likely related to pain, will check room air 02 sat 3. Can dc if ok with pt and ortho 3. labs rev Consultation Date/Type/Reason Admit Date/Time Aug 14, 2017 at 05:31 Detailed Summary Respiratory: No cough, No shortness of breath Cardiovascular: chest pain Gastrointestinal: no complaints Genitourinary: no complaints Musculoskeletal: back pain (is less then yesterday) Exam/Review of Systems Vital Signs Vitals Vital Signs Date Time Temp Pulse Resp B/P Pulse Ox O2 Delivery O2 Flow Rate FiO2 08/17/17 07:03 98.3 89 19 132/61 99 08/16/17 08:20 Nasal Cannula 2.0 Intake and Output 08/16/17 08/16/17 08/17/17 15:00 23:00 07:00 Intake Total 1400 ml 2086 ml 1200 ml Output Total 1100 ml Balance 1400 ml 2086 ml 100 ml Exam Neck: No jvd Respiratory: clear to auscultation Cardiovascular: regular rate and rhythm Gastrointestinal: soft Extremities: No edema (and no calf tend) Results Result Diagram: 08/17/17 0429 08/17/17 0429 Results 24 hrs Laboratory Tests Test 08/16/17 14:55 08/17/17 04:29 Urine Color STRAW Urine Clarity CLEAR Urine pH 6.0 Urine Specific [place] 1.009 Urine Ketones NEGATIVE Urine Nitrite NEGATIVE Urine Bilirubin NEGATIVE Urine Urobilinogen NEGATIVE Urine Leukocyte Esterase NEGATIVE Urine Hemoglobin NEGATIVE Urine Random Sodium 82 Urine Glucose NEGATIVE Urine Total Protein NEGATIVE White Blood Count 8.2 # Red Blood Count 3.60 L Hemoglobin 10.7 L Hematocrit 32.4 L Mean Corpuscular Volume 90.0 Mean Corpuscular Hemoglobin 29.7 Mean Corpuscular Hemoglobin Concent 33.0 Red Cell Distribution Width 13.9 Platelet Count 221 # Mean Platelet Volume 11.4 H Neutrophils % 73.7 Lymphocytes % 15.0 Monocytes % 8.8 Eosinophils % 1.5 Basophils % 0.6 Nucleated Red Blood Cells % 0.0 Neutrophils # 6.1 Lymphocytes # 1.2 Monocytes # 0.7 Eosinophils # 0.1 Basophils # 0.1 Nucleated Red Blood Cells # 0.0 Sodium Level 136 Potassium Level 4.3 Chloride Level 101 Carbon Dioxide Level 31 Anion Gap 8 Blood Urea Nitrogen 4 L Creatinine 0.60 Glucose Level 93 Calcium Level 8.1 L Phosphorus Level 2.6 Magnesium Level 2.2 Medications Medications Current Medications Oxycodone/ Acetaminophen (Endocet (10/ 325)) 1 tab Q4H PRN PO PAIN LEVEL 1-5; Start 08/14/17 at 07:00 Oxycodone/ Acetaminophen (Endocet (10/ 325)) 2 tab Q4H PRN PO PAIN LEVEL 6-10 Last administered on 08/17/17 06:20; Admin Dose 2 TAB; Start 08/14/17 at 07: 00 Hydromorphone HCl (Dilaudid) 0.2 mg Q1H PRN IV BREAKTHROUGH PAIN; Start at 07:00 Ondansetron HCl (Zofran Inj) 4 mg Q6H PRN IV NAUSEA AND/OR VOMITING Last administered on 08/16/17 14:46; Admin Dose 4 MG; Start 08/14/17 at 07:00 Bisacodyl (Dulcolax Supp) 10 mg DAILY PRN [place] CONSTIPATION; Start 08/14/17 at 07:00 Docusate Sodium (Colace) 100 mg BID PO Last administered on 08/17/17 08:56; Admin Dose 100 MG; Start 08/14/17 at 09:00 Pantoprazole (Protonix Tab) 40 mg DAILY@06 PO Last administered on 08/17/17 06:20; Admin Dose 40 MG; Start 08/15/17 at 06:00 Al Hydrox/Mg Hydrox/Simethicone (Mag-Al Plus) 15 ml Q6H PRN PO CONSTIPATION/ DYSPEPSIA; Start 08/14/17 at 07:00 Acetaminophen (Tylenol Tab) 650 mg Q4H PRN PO CHOPRA OR TEMP GREATER THAN 101.3F Last administered on 08/16/17 04:49; Admin Dose 650 MG; Start 08/14/17 at 07: 00 Phenol (Cepastat Lozenge) 1 lozenge PRN PRN [place] SORE THROAT Last administered on 08/14/17 20:11; Admin Dose 1 LOZENGE; Start 08/14/17 at 07:00 Diphenhydramine HCl (Benadryl) 25 mg Q6H PRN PO ITCHING; Start 08/14/17 at 07: 00 Diphenhydramine HCl (Benadryl) 25 mg Q6H PRN IV ITCHING Last administered on 05:20; Admin Dose 25 MG; Start 08/14/17 at 07:00 Naloxone HCl (Narcan) 0.2 mg Q2M PRN IV RR 8 BREATHS/MIN OR LESS; Start at 07:00 Hydromorphone HCl (Dilaudid ARCHITECTURAL DRAFTING INSTRUCTOR) ARCHITECTURAL DRAFTING INSTRUCTOR to be started in PACU Q4PCA IV Last administered on 08/15/17 06:31; Admin Dose 6 MG; Start 08/14/17 at 07:00; Status Future Hold Miscellaneous Information 1. Hold ARCHITECTURAL DRAFTING INSTRUCTOR at 1,000... ARCHITECTURAL DRAFTING INSTRUCTOR IV ; Start 08/14/17 at 07 :00 Hydromorphone HCl (Dilaudid ARCHITECTURAL DRAFTING INSTRUCTOR) ARCHITECTURAL DRAFTING INSTRUCTOR to be started in PACU Q4PCA IV Last administered on 08/16/17 07:53; Admin Dose 6 MG; Start 08/15/17 at 09:30 Diazepam 5 mg 5 mg Q8H PRN PO MUSCLE SPASMS Last administered on 08/17/17 04: 05; Admin Dose 5 MG; Start 08/16/17 at 13:00 Sodium Chloride (NS) 1,000 ml @ 80 mls/hr [id number] IV Last administered on 14:45; Admin Dose 80 MLS/HR; Start 08/16/17 at 09:30 AVIS RODARTE MD Aug 17, 2017 09:41
== END 2017-08-17 14:35 | disposition home or self-care (01) | DRG 454 ==
LOC: REC 05:31 → EDSTATUS 07:00 → MS1 13:33
PROVIDERS: ADMIT Specialist; ATTEND Specialist
PROC: 0SG30K1 Fusion of Lumbosacral Joint with Nonautologous Tissue Substitute, Posterior Approach, Posterior Column, Open Approach (ICD-10-PCS; 2017-08-14)
PROC: 0ST40ZZ Resection of Lumbosacral Disc, Open Approach (ICD-10-PCS; 2017-08-14)
PROC: 0SG30A0 Fusion of Lumbosacral Joint with Interbody Fusion Device, Anterior Approach, Anterior Column, Open Approach (ICD-10-PCS; 2017-08-14)
PROC: 00QT0ZZ Repair Spinal Meninges, Open Approach (ICD-10-PCS; 2017-08-14)
PROC: 0SG00K1 Fusion of Lumbar Vertebral Joint with Nonautologous Tissue Substitute, Posterior Approach, Posterior Column, Open Approach (ICD-10-PCS; 2017-08-14)
PROC: 07DR3ZZ Extraction of Iliac Bone Marrow, Percutaneous Approach (ICD-10-PCS; 2017-08-14)
PROC: 4A11X4G Monitoring of Peripheral Nervous Electrical Activity, Intraoperative, External Approach (ICD-10-PCS; 2017-08-14)
PROC: 0SG00A0 Fusion of Lumbar Vertebral Joint with Interbody Fusion Device, Anterior Approach, Anterior Column, Open Approach (ICD-10-PCS; principal; 2017-08-14 07:00)
DX: M41.87 Other forms of scoliosis, lumbosacral region (principal); E87.1 Hypo-osmolality and hyponatremia; K56.7 Ileus, unspecified; G96.11 Dural tear; E83.42 Hypomagnesemia; M48.07 Spinal stenosis, lumbosacral region; M48.061 Spinal stenosis, lumbar region without neurogenic claudication; M51.16 Intervertebral disc disorders with radiculopathy, lumbar region; M51.17 Intervertebral disc disorders with radiculopathy, lumbosacral region
CPT/HCPCS: 72020; 72114; 72131; 72158; 80048; 81003; 83735; 84100; 84300; 85025; 86850; 86900; 86901; 86920; 86999; 87086; 97110; 97116; 97163; 97530; C9250; J0690; J1100; J1170; J1200; J1644; J2250; J2370; J2405; J2710; J2765; J3010; J3475; J3480; J7030; J7120; V2790